=== PATIENT | female | born 1985 | race Two or more races ===

== ENCOUNTER 2017-07-05 08:05 | Emergency (ER) | payer MEDICAID ==
[2017-07-05 08:16] VITALS: BP 125/87
--- NOTE | 2017-07-05 08:45 | EDM.PDOC ---
ED HPI GENERAL MEDICAL PROBLEM - General Chief Complaint: PROGRAM PARAPROFESSIONAL Problem Stated Complaint: 9 WEEKS PREG AND SPOTTING Time Seen by Provider: 07/05/17 08:35 - History of Present Illness INITIAL COMMENTS - FREE TEXT/NARRATIVE: 31 yo female at 9 weeks gestation presents to the emergency room with vaginal spotting. Patient developed spotting early last evening she notices only when she wipes she's not passed any clots she is also had vaginal discharge greenish yellow for about the last 2 weeks. She is at 9 weeks gestation. Her last terminated at 17 weeks with a miscarriage. She is a 4 para 2. She denies fevers or chills has some mild crampy sensation. 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: , Spontaneous Musculoskeletal History: Reports: Fracture Psychiatric History: Reports: Anxiety, Depression Endocrine/Metabolic History: Reports: Diabetes, Gestational - Past Surgical History GI Surgical History: Reports: Appendectomy Social & Family History - Family History Family Medical History: Noncontributory - Tobacco Use Smoking Status *Q: Former Smoker Years of Tobacco use: 11 Packs/Tins Daily: 0.5 Used Tobacco, but Quit: Yes Month Tobacco Last Used: May 2017 Second Hand Smoke Exposure: Yes - Caffeine Use Caffeine Use: Reports: None - Alcohol Use Days Per Week of Alcohol Use: 0 - Recreational Drug Use Recreational Drug Use: Yes Drug Use in Last 12 Months: Yes Recreational Drug Type: Reports: Marijuana/Hashish Recreational Drug Last Use: unknown ED ROS GENERAL - Review of Systems Review Of Systems: See Below Constitutional: Reports: No Symptoms HEENT: Reports: No Symptoms Respiratory: Reports: No Symptoms Cardiovascular: Reports: No Symptoms GI/Abdominal: Reports: No Symptoms : Reports: Discharge, Other (See history of present illness) ED EXAM - Physical Exam Exam: See Below Exam Limited By: No Limitations General Appearance: Alert, No Apparent Distress Head: Atraumatic, Normocephalic Neck: Normal Inspection, Supple, Non-Tender, Full Range of Motion Respiratory/Chest: No Respiratory Distress, Lungs Clear, Normal Breath Sounds Cardiovascular: Regular Rate, Rhythm, No Edema, No Murmur GI/Abdominal Exam: Normal Bowel Sounds, Soft, Other (Vague mild discomfort in the lower pelvis no other discomfort appreciated no rigidity rebound or guarding noted) (Female) Exam: Normal External Exam, Other (She has yellow greenish cervical discharge noted faint red to pink tinged mucousy discharge noticed on swabs. Cervix long soft closed) Back Exam: Normal Inspection. No: CVA Tenderness (L), CVA Tenderness (R) Course - Vital Signs Last Recorded V/S: Last Vital Signs Temp 36.3 C 07/05/17 08:12 Pulse 64 07/05/17 08:12 Resp 16 07/05/17 08:12 BP 125/87 07/05/17 08:12 Pulse Ox 100 07/05/17 08:12 - Orders/Labs/Meds Orders: Active Orders 24 hr Category Date Time Status GC/CHLAMYDIA BY PCR [MOLEC] Stat Lab 07/05/17 09:26 Received Labs: Laboratory Tests 07/05/17 07/05/17 07/05/17 Range/Units 08:55 09:04 09:04 WBC 8.92 (3.98-10.04) K/mm3 RBC 4.39 (3.98-5.22) M/mm3 Hgb 13.6 (11.2-15.7) gm/L Hct 39.5 (34.1-44.9) % MCV 90.0 (79.4-94.8) fl MCH 31.0 (25.6-32.2) pg MCHC 34.4 (32.2-35.5) g/dl RDW Std Deviation 43.7 (36.4-46.3) fL Plt Count 249 (182-369) K/mm3 MPV 10.3 (9.4-12.3) fl Neutrophils % (Manual) 73 H (40-60) % Band Neutrophils % 2 (0-10) % Lymphocytes % (Manual) 21 (20-40) % Atypical Lymphs % 0 % Monocytes % (Manual) 3 (2-10) % Eosinophils % (Manual) 1 (0.7-5.8) % Basophils % (Manual) 0 L (0.1-1.2) Platelet Estimate Adequate RBC Morph Comment Normal HCG, Quant 957323.0 mIU/mL Urine Color Yellow (Yellow) Urine Appearance Clear (Clear) Urine pH 6.0 (5.0-8.0) Ur Specific [place] 1.015 (1.005-1.030) Urine Protein Negative (Negative) Urine Glucose (UA) Negative (Negative) Urine Ketones Negative (Negative) Urine Occult Blood 1+ H (Negative) Urine Nitrite Negative (Negative) Urine Bilirubin Negative (Negative) Urine Urobilinogen 0.2 (0.2-1.0) Ur Leukocyte Esterase Negative (Negative) Urine RBC 5-10 H (0-5) /hpf Urine WBC 0-5 (0-5) /hpf Ur Epithelial Cells 0-5 (0-5) /hpf Urine Bacteria Rare (FEW) /hpf Urine Mucus Few (FEW) /hpf Blood Type Gel Antibody Screen 07/05/17 Range/Units 09:04 WBC (3.98-10.04) K/mm3 RBC (3.98-5.22) M/mm3 Hgb (11.2-15.7) gm/L Hct (34.1-44.9) % MCV (79.4-94.8) fl MCH (25.6-32.2) pg MCHC (32.2-35.5) g/dl RDW Std Deviation (36.4-46.3) fL Plt Count (182-369) K/mm3 MPV (9.4-12.3) fl Neutrophils % (Manual) (40-60) % Band Neutrophils % (0-10) % Lymphocytes % (Manual) (20-40) % Atypical Lymphs % % Monocytes % (Manual) (2-10) % Eosinophils % (Manual) (0.7-5.8) % Basophils % (Manual) (0.1-1.2) Platelet Estimate RBC Morph Comment HCG, Quant mIU/mL Urine Color (Yellow) Urine Appearance (Clear) Urine pH (5.0-8.0) Ur Specific [place] (1.005-1.030) Urine Protein (Negative) Urine Glucose (UA) (Negative) Urine Ketones (Negative) Urine Occult Blood (Negative) Urine Nitrite (Negative) Urine Bilirubin (Negative) Urine Urobilinogen (0.2-1.0) Ur Leukocyte Esterase (Negative) Urine RBC (0-5) /hpf Urine WBC (0-5) /hpf Ur Epithelial Cells (0-5) /hpf Urine Bacteria (FEW) /hpf Urine Mucus (FEW) /hpf Blood Type O POSITIVE Gel Antibody Screen Negative - Re-Assessments/Exams Free Text/Narrative Re-Assessment/Exam: 07/05/17 09:34 Nursing thought they found heart tones briefly I was unable to find them and we were unable to find them again. Will await quantitative hCG than proceed with ultrasound 07/05/17 12:21 GC and Chlamydia are negative no yeast elements seen Trichomonas testing and microscopic is negative she has a few clue cells noted. Case reviewed with Dr. Cuevas we will treat her bacterial vaginosis. The patient has follow-up with Dr. Cuevas next week. Departure - Departure Time of Disposition: 12:25 Disposition: Home, Self-Care 01 Clinical Impression: Bacterial vaginosis - Discharge Information Prescriptions: metroNIDAZOLE [Flagyl] 500 mg PO Q12H #14 tablet Referrals: Nelson Cuevas MD [Primary Care Provider] - Forms: ED Department Discharge Additional Instructions: Return to the emergency room with any questions problems worsening symptoms. Follow-up with Dr. Cuevas on Wednesday if you're still having any problems. Otherwise follow-up with him next week as scheduled. Your started on Flagyl this is an antibiotic take one twice daily for 1 week until all gone. No heavy lifting or exertional activities for the next couple of days. Then resume normal activity but limit your lifting. - My Orders Last 24 Hours: My Active Orders 07/05/17 09:26 GC/CHLAMYDIA BY PCR [MOLEC] Stat - Assessment/Plan Last 24 Hours: My Active Orders 07/05/17 09:26 GC/CHLAMYDIA BY PCR [MOLEC] Stat
[2017-07-05 13:30] LABS: C. TRACHOMATIS BY PCR NOT DETECTED; N. GONORRHOEAE BY PCR NOT DETECTED
== END 2017-07-05 12:45 | disposition home or self-care (01) ==
LOC: JD.ED 08:05
DX: O23.591 Infection of other part of genital tract in pregnancy, first trimester (principal); B96.89 Other specified bacterial agents as the cause of diseases classified elsewhere; O24.419 Gestational diabetes mellitus in pregnancy, unspecified control; Z3A.09 9 weeks gestation of pregnancy; Z87.891 Personal history of nicotine dependence
CPT/HCPCS: 36415; 81001; 84702; 85025; 86850; 86900; 86901; 87210; 87220; 87491; 87591; 87808; 99283; 99284

== ENCOUNTER 2018-01-31 10:00 | Inpatient (IN) | payer MEDICAID ==
--- NOTE | 2018-01-31 10:23 | PCM.LDHP ---
L&D History of Present Illness - General Date of Service: 01/31/18 Admit Problem/Dx: Admission Diagnosis/Problem Admission Diagnosis/Problem 01/31/18 10:09 39-1/7 week intrauterine , elective induction of labor History of present illness: Oanh is a 32-year-old 4 para 2012 female with a viable, pinzon intrauterine at 39-1/7 weeks gestational age based on a final CLARY of 02/06/2018 as determined by an early ultrasound done at 12 -4/7 weeks. Her last menstrual period was approximately and occurred on 2016. Patient has had follow-up ultrasounds that are supportive of her first ultrasound dating. Her cervix is 3+ centimeters dilated, 80% effaced, very soft , -3, anterior, 80% effaced. Pitocin/artificial rupture membranes induction is discussed in detail patient. She appears to understand, wishes to proceed and is admitted for this reason. PROOFER history: The patient is a 4 para 2012 female who has had 2 deliveries in the past. Menses as follows: 1. Male infant born 10/18/2010 at 39 weeks gestational age after 20 hours a7 lbs. 8 oz.delivered in [place]-child's name is Ta. 2. Male infant born [birth year]20/2014 at 40 weeks gestational age after 8 hours of labor8 lbs. 11 oz.delivered in [facility]'s name is Jace 3. demise delivered 11/24/2016 at 17 weeks gestational age course was remarkable for persistent pelvic pain. She declined flu shot. She has a history of drug use early in the and attempted plan the 2 [place] 8 the . This however was unsuccessful and patient decided to continue the . Her urine drug screen on 07/12/2017 was negative and on a couple of evaluations thereafter it was also negative. Patient has gestational diabetes with her preceding pregnancies. Her group B strep is positive on urine culture. She is a candidate for antibiotic prophylaxis. Patient plans to nurse the baby. She was first seen at 10 weeks and 1 day. She was seen on a very regular basis. Her weight gain was from 162 pounds to 215 pounds for a 53 pound increase. Her vital signs have been stable and her fundal height growth has been appropriate. Laboratory testing in shows blood to be O+ with a negative and may screen. Her first hemoglobin was 13.4 g/dL. Weight was 296,000. She is rubella immune. RPR is nonreactive. Urine culture showed group B strep screen and patient is a candidate for group B strep prophylaxis. Hepatitis B surface antigen assay and HIV assays were both negative. Gonorrhea and chlamydia assays were both negative. Second trimester testing showed a hemoglobin of 12.2 g/dL and platelets that were 225,000. One-hour GTT was 116. Past medical history: 1. Normal spontaneous vaginal delivery 2 2. demise at 17 weeks 2016 3. Her abnormal Pap smearremote 4. History of gestational diabetes with first 2 pregnancies. 5. History of drug use early in . Past surgical history: 1. Appendectomy 1989 Family history: No history of anesthesia, bleeding or blood clotting problems. related problems not noted either. Social history: Patient is . is Dieter Palomino. He is in [facility] at the present time on what patient reports to be drug related charges and probation violation. She does not use any significant loss of alcohol, drugs or tobacco. 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 She and her family live in [place]. Review of systems: In general patient appears to be doing well has no major complaints other than what seems to chronic pelvic type pain related to the Skin: Negative Cardiovascular: No chest pain or exercise intolerance Respiratory: No shortness of breath or infectious symptoms Breasts: Changes in size related to . Patient plans to breast-feed GI: Negative : Pelvic pain as described above. Baby is active. No significant contractions noted. Musculoskeletal: Occasional edema in bilateral lower extremities Neurological: Negative Physical exam: On last evaluation today in clinic the patient's weight was 215 pounds, blood pressure 126/70, heart rate was 140. Weight at first visit was 162. Skin is warm and dry without lesions. HEENT, neck and back within normal limits. Lungs are clear with good breath sounds in all lung tabares. Cardiovascular exam shows regular rate and rhythm without murmurs. Breast exam is deferred having been done at first visit found to be normal. Abdomen is protuberant with fundal height of 39-1/2 cm. Baby is in a vertex presentation by Eagle maneuvers. Cervix is 3 cm plus dilated, 80% effaced, -3 station, very soft, anterior. Head is applied to the cervix. Extremities and neurological exam within normal limits. Assessment: 1. 39-1/7 week intrauterine , elective induction of labor 2. Group B strep positive per urine culturepatient is candidate for antibiotic prophylaxisis not allergic to penicillin and therefore we use ampicillin per protocol. 3. Patient desires epidural in labor and delivery 4. Rubella titer is immune 5. Patient plans to breast-feed 6. RPR is negative. Plan: 1. Pitocin/artificial rupture membranes induction today procedure, risks, benefits, alternatives of care including waiting for natural onset of labor all discussed with patient. She appears to understand and wishes to proceed 2. CBC and RPR upon admission 3. Epidural when necessary per patient desire 4. Drug screen upon admission 5. Support breast-feeding decision. 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
[2018-01-31] MEDS ORDERED: Nalbuphine 20 MG/ML 1 ML Syringe IVPUSH PRN (10:24)
[2018-01-31] MEDS ORDERED: Ondansetron 4 MG/2 ML SDV IVPUSH PRN (10:24)
[2018-01-31] MEDS ORDERED: Sodium Chloride 0.9% 10 ML Syringe FLUSH PRN (10:24)
[2018-01-31] MEDS ORDERED: Oxytocin/Lactated Ringers 10 UNIT/1,000 ML BAG IV SCH (10:30)
[2018-01-31] MEDS ORDERED: Ampicillin 2 GM in Sodium Chloride 0.9% 100 ML IV ONE (12:00)
[2018-01-31] MEDS: Lactated Ringers 1,000 ML IV SCH ×4 (12:45→18:08)
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
[2018-01-31] MEDS ORDERED: diphenhydrAMINE 50 MG/ML SDV IVPUSH PRN (15:30)
[2018-01-31] MEDS ORDERED: fentaNYL 100 MCG/2 ML SDV EPIDUR PRN (15:30)
[2018-01-31] MEDS ORDERED: ePHEDrine 50 MG/ML SDV IVPUSH PRN (15:30)
[2018-01-31] MEDS ORDERED: Bupivacaine/fentaNYL/NS 100 ML Bag EPIDUR SCH (15:30)
[2018-01-31] MEDS ORDERED: Diphtheria,Pertussis(Acell),Tetanus Vaccine 0.5 ML SDV IM ONE (16:00)
[2018-01-31] MEDS: Ampicillin 1 GM in Sodium Chloride 0.9% 100 ML IV SCH ×2 (16:15→23:45)
[2018-01-31] MEDS ORDERED: Lidocaine 1% 50 ML MDV INJECT ONE (18:00)
[2018-01-31] MEDS ORDERED: Lidocaine 1% 50 ML MDV ONE (20:18)
--- NOTE | 2018-01-31 20:47 | PCM.SN ---
- Free Text/Narrative Note: Oanh is a 32-year-old 4 now para 3013 female who was admitted at 39-2/ 7 weeks gestational age with an CLARY of 02/06/2018 for elective induction of labor. She was initially given Pitocin IV and when appropriate artificial rupture membranes ensued. Clear amniotic fluid was noted. She had an epidural in labor for analgesia. She progressed steadily to complete cervical dilation by approximately 2000 hours on 01/31/2018. Patient then had one contraction of pushing and delivered a viable, pinzon, 3210 g menses 7 pound 1.2 ounce) male infant with Apgars of 8 and 9 and length of 21.0 inches at 2020 hrs. in a left occiput anterior position on 01/31/2018. The perineum remained intact. The baby was placed on mom's abdomen and the nose and mouth were bulb suctioned. Cord was clamped 2 and cut. Pitocin was administered IV to facilitate and increase in uterine tone and reduce the likelihood of bleeding. Umbilical was noted to be around the neck times onemoderately tight and was reduced over the baby's body. The cord had 3 vessels. The placenta was delivered in a Po[place] fashion, appeared complete and intact and was discarded per patient desire. No perineal lacerations were noted. Estimated blood loss was 300 mL. Patient plans to breast-feed.
[2018-01-31] MEDS ORDERED: Benzocaine/Menthol 20%-0.5% Spray 56 GM Canister TOP PRN (21:38)
[2018-01-31] MEDS ORDERED: Acetaminophen 325 MG Tab PO PRN (21:38)
[2018-01-31] MEDS ORDERED: Witch Hazel Medicated Pads 100/Jar TOP PRN (21:38)
[2018-01-31] MEDS ORDERED: Docusate Sodium 100 MG Cap PO PRN (21:38)
[2018-01-31] MEDS ORDERED: Lanolin 100% Cream 7 GM Tube TOP PRN (21:38)
[2018-01-31] MEDS ORDERED: Calcium Carbonate 500 MG Tab.Chew PO PRN (21:59)
[2018-01-31] MEDS ORDERED: Bupivacaine 0.25% 10 ML SDV ONE (22:00)
[2018-02-01] MEDS: Ibuprofen 600 MG Tab PO PRN ×3 (04:13→16:53)
--- NOTE | 2018-02-01 09:32 | PCM48HPAN ---
Post Anesthesia Note - EVALUATION WITHIN 48HRS OF ANESTHETIC Vital Signs in Normal Range: Yes Patient Participated in Evaluation: Yes Respiratory Function Stable: Yes Airway Patent: Yes Cardiovascular Function Stable: Yes Hydration Status Stable: Yes Pain Control Satisfactory: Yes Nausea and Vomiting Control Satisfactory: Yes Mental Status Recovered: Yes
--- NOTE | 2018-02-01 10:29 | PCM.SN ---
- Free Text/Narrative Note: note: Patient is doing well in the period. Minimal lochia, voiding well, ambulated without problems. Nursing without concerns. Patient is afebrile, vital signs are stable Abdomen is flat, soft, uterus is below the umbilicus and is firm and nontender. Legs are nontender. Assessment: recovery going well. Plan: Routine care. Patient be discharged home within the next 24- 48 hours.
[2018-02-01] MEDS: Prenatal Multivitamin with Calcium/Folic Acid/Iron Tab PO SCH (12:45)
--- NOTE | 2018-02-02 06:53 | PCM.DCSUM1 ---
Discharge Summary - Hospital Course Free Text/Narrative:: Oanh is a 32-year-old 4 now para 3013 female who was admitted at 39-2/ 7 weeks gestational age with an CLARY of 02/06/2018 for elective induction of labor. She was initially given Pitocin IV and when appropriate artificial rupture membranes ensued. Clear amniotic fluid was noted. She had an epidural in labor for analgesia. She progressed steadily to complete cervical dilation by approximately 2000 hours on 01/31/2018. Patient then had one contraction of pushing and delivered a viable, pinzon, 3210 g menses 7 pound 1.2 ounce) male with Apgars of 8 and 9 and length of 21.0 inches at 2020 hrs. in a left occiput anterior position on 01/31/2018. The perineum remained intact. The baby was placed on mom's abdomen and the nose and mouth were bulb suctioned. Cord was clamped 2 and cut. Pitocin was administered IV to facilitate and increase in uterine tone and reduce the likelihood of bleeding. Umbilical was noted to be around the neck times onemoderately tight and was reduced over the baby's body. The cord had 3 vessels. The placenta was delivered in a Poole fashion, appeared complete and intact and was discarded per patient desire. No perineal lacerations were noted. Estimated blood loss was 300 mL. Patient plans to breast-feed. patient is doing well. She is nursing without problems, lochia is minimal. She is voiding well and ambulating well. Patient is desiring discharge home. Diagnosis: Stroke: No - Discharge Data Discharge Date: 02/02/18 Discharge Disposition: Home, Self-Care 01 Condition: Good - Patient Instructions Diet: Regular Diet as Tolerated (Nursing diet was increased calories and calcium as directed) Activity: As Tolerated (No intercourse or tampons until bleeding resolves) Driving: Do Not Drive Showering/Bathing: May Shower (Or take a bath) - Discharge Plan Home Medications: Home Meds Pnv No.122/Iron/Folic Acid [ Multi Tablet] 1 each PO DAILY 01/31/18 [ History] Acetaminophen [Tylenol] 650 mg PO Q4H PRN tablet 02/02/18 [Rx] Ibuprofen [Motrin] 600 mg PO Q4H PRN tablet 02/02/18 [Rx] Referrals: Nelson Cuevas MD [Primary Care Provider] - (Return to [facility] weeks) - Discharge Summary/Plan Comment DC Time >30 min.: No Discharge Summary/Plan Comment: Discharge instructions: 1. Discharge home 2. Diet, activity and follow-up discussed with patient. Recommend nursing diet with increased calories and calcium. 3. Precautions given concern increased pain, bleeding, temperature, signs/ symptoms of DVT/PE. 4. Medications per home medication was printed, discussed with and given to the patient. 5. Return to clinic-Dr. Cuevas[facility] in 2 weeks. Diagnosis: Term -delivered Condition: Good - Patient Data Vitals - Most Recent: Last Vital Signs Temp 36.7 C 02/02/18 03:29 Pulse 69 02/02/18 03:29 Resp 16 02/02/18 03:29 BP 135/72 02/02/18 03:29 Pulse Ox 96 02/02/18 03:29 Weight - Most Recent: 97.25 kg I&O - Last 24 hours: Intake & Output 02/01/18 02/01/18 02/02/18 14:59 22:59 06:59 Intake Total 180 450 Balance 180 450 Lab Results - Last 24 hrs: Laboratory Results - last 24 hr 01/31/18 Range/Units 13:25 RPR Non-reactive (NONREACTIVE) Med Orders - Current: Current Medications Acetaminophen (Tylenol) 650 mg PO Q4H PRN PRN Reason: mild pain or fever Benzocaine/Menthol (Dermoplast Pain Relief Scott) 0 gm TOP ASDIRECTED PRN PRN Reason: Perineal Comfort Measure Calcium Carbonate/Glycine (Tums) 1,000 mg PO Q2HR PRN PRN Reason: Indigestion Last Admin: 01/31/18 22:17 Dose: 1,000 mg Docusate Sodium (Colace) 100 mg PO BID PRN PRN Reason: Constipation Emollient Ointment (Lansinoh Hpa) 0 gm TOP ASDIRECTED PRN PRN Reason: Sore Nipples Last Admin: 01/31/18 23:50 Dose: 1 applic Ibuprofen (Motrin) 600 mg PO Q4H PRN PRN Reason: Mild pain or fever Last Admin: 02/01/18 16:53 Dose: 600 mg Prenat Multivit/[place]/Iron/Folic Ac ( Plus Iron) 1 each PO DAILY LORNA Last Admin: 02/01/18 12:45 Dose: 1 each Witvivi Sophy (Tucks) 1 pad TOP ASDIRECTED PRN PRN Reason: Hemorrhoid pain Discontinued Medications Bupivacaine HCl (Sensorcaine-Mpf 0.25%) 10 ml .ROUTE .STK-MED ONE Stop: 01/31/18 22:01 Diphenhydramine HCl (Benadryl) 25 mg IVPUSH Q6H PRN PRN Reason: pruritis Diphtheria/Tetanus/Acell Pertussis (Adacel) 0.5 ml IM .ONCE ONE Stop: 01/31/18 16:01 Last Admin: 01/31/18 23:47 Dose: Not Given Ephedrine Sulfate (Ephedrine Sulfate) 5 mg IVPUSH ASDIRECTED PRN PRN Reason: Hypotension Fentanyl (Sublimaze) 100 mcg EPIDUR Q3H PRN PRN Reason: Pain Last Admin: 01/31/18 17:08 Dose: 100 mcg Fentanyl/Bupivacaine HCl (Fentanyl/Bupivacaine/Ns 2 Mcg-0.125% 100 Ml) 100 ml EPIDUR ASDIRECTED [facility] Last Admin: 01/31/18 17:08 Dose: 100 ml Ampicillin Sodium 2 gm/ Sodium (Chloride) 100 mls @ 200 mls/hr IV ONETIME ONE Stop: 01/31/18 12:29 Last Admin: 01/31/18 12:45 Dose: 200 mls/hr Ampicillin Sodium 1 gm/ Sodium (Chloride) 100 mls @ 200 mls/hr IV Q4H [facility] Last Admin: 01/31/18 23:45 Dose: Not Given Lactated Ringer's (Ringers, Lactated) 1,000 mls @ 100 mls/hr IV ASDIRECTED [facility] Last Admin: 01/31/18 18:08 Dose: 100 mls/hr Oxytocin/Lactated Ringer's (Pitocin In Lr 10 Units/1,000 Ml) 10 unit in 1,000 mls @ 12 mls/hr IV TITRATE LORNA; Protocol Last Titration: 01/31/18 18:09 Dose: 20 munits/min, 120 mls/hr Lidocaine HCl (Xylocaine 1%) 10 ml INJECT ONETIME ONE Stop: 01/31/18 18:01 Last Admin: 01/31/18 23:47 Dose: Not Given Lidocaine HCl (Xylocaine 1%) Confirm Administered Dose 50 ml .ROUTE .K-MED ONE Stop: 01/31/18 20:19 Last Admin: 01/31/18 23:46 Dose: Not Given Nalbuphine HCl (Nubain) 10 mg IVPUSH Q2H PRN PRN Reason: Pain (moderate 4-6) Ondansetron HCl (Zofran) 4 mg IVPUSH Q4H PRN PRN Reason: Nausea/Vomiting Last Admin: 01/31/18 18:08 Dose: 4 mg Sodium Chloride (Saline Flush) 10 ml FLUSH ASDIRECTED PRN PRN Reason: Keep Vein Open
[2018-02-02] MEDS: Ibuprofen 600 MG Tab PO PRN (07:50)
[2018-02-02] MEDS: Prenatal Multivitamin with Calcium/Folic Acid/Iron Tab PO SCH (09:27)
[2018-02-02 09:50] VITALS: BP 131/79
== END 2018-02-02 10:30 | disposition home or self-care (01) | DRG 775 ==
LOC: JD.OB 12:02 → OBSVTOIN 20:20 → JD.OB 20:20
PROVIDERS: ADMIT Obstetrics & Gynecology; ATTEND Obstetrics & Gynecology
PROC: 10E0XZZ Delivery of Products of Conception, External Approach (ICD-10-PCS; principal; 2018-01-31)
PROC: 10907ZC Drainage of Amniotic Fluid, Therapeutic from Products of Conception, Via Natural or Artificial Opening (ICD-10-PCS; 2018-01-31)
PROC: 3E0S3GC Introduction of Other Therapeutic Substance into Epidural Space, Percutaneous Approach (ICD-10-PCS; 2018-01-31)
DX: O99.824 Streptococcus B carrier state complicating childbirth (principal); O69.81X0 Labor and delivery complicated by cord around neck, without compression, not applicable or unspecified; Z37.0 Single live birth; Z3A.39 39 weeks gestation of pregnancy; O99.320 Drug use complicating pregnancy, unspecified trimester; F19.11 Other psychoactive substance abuse, in remission
CPT/HCPCS: 36415; 51702; 59025; 59409; 85025; 85027; 86592; A9270-GY; J0290; J2405; J2590; J3010; J7030; J7120

== ENCOUNTER 2019-01-04 04:48 | Emergency (ER) | payer MEDICAID ==
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
--- NOTE | 2019-01-04 08:11 | CR ---
Right shoulder: Three views of the right shoulder were obtained. Comparison: No previous right shoulder study. Glenohumeral joint appears within normal limits. Distal clavicle is slightly elevated. Difficult to exclude minimal acromioclavicular separation or minimal laxity of the acromioclavicular ligament. No acute fracture or other bony abnormality is seen. Impression: 1. Equivocal finding within the acromioclavicular joint as noted above. 2. No acute bony abnormality is seen. Diagnostic code #3
== END 2019-01-04 06:30 | disposition home or self-care (01) ==
LOC: JD.ED 04:48
DX: S46.911A Strain of unspecified muscle, fascia and tendon at shoulder and upper arm level, right arm, initial encounter (principal); Z79.899 Other long term (current) drug therapy; X50.0XXA Overexertion from strenuous movement or load, initial encounter
CPT/HCPCS: 73030-26-RT; 73030-RT; 99283-25